=== PATIENT | female | born 1955 | race Caucasian/White ===

== ENCOUNTER 2018-01-04 05:47 | Day surgery (SDC) | payer MEDICAID, SELFPAY ==
--- NOTE | 2018-01-04 | GASB_PTH ---
PATIENT: MARIA LUISA REDMOND LOC: EN U#:[id number] AGE/SX: 62/F ROOM: RE01/04/[address]: Dr. Paul Garcia MD : 1955 BED: DIS: 01/04/2018 SPEC #: [id number] RECD: 01/04/18 11:07 STATUS: TAMARA ANIRUDH #: [id number] PRISCILLA: 01/04/18 00:[address]: Paul Garcia DEPT: SURGICAL PATHOLOGY RECD BY: Keenan Roland ENTERED: 01/04/18 11:07 SP TYPE: Gastric Bx OTHR DR: Dr. Nasir Duke MD Tissues: Gastric mucous membrane Procedures: Surgery Specimen Level IV HEADER OPERATION: [place] [place] DIAGNOSIS: Dysphagia, GERD, paraesophageal hernia TISSUE SUBMITTED: Antral biopsy for H. pylori and pathology MICROSCOPIC DIAGNOSIS Antral biopsy: Chronic active gastritis. SJ:ej 01/06/18 COMMENT The results of immunohistochemistry for Helicobacter pylori will be reported separately ([id number]). MICROSCOPIC DESCRIPTION Slides are reviewed. GROSS DESCRIPTION Received in fixative is one container labeled with the patient's name and designated antral biopsy. The specimen consists of one irregular fragment of light pollock soft tissue that measures 0.7 x 0.2 x 0.1 cm. The specimen is totally submitted in one cassette. / SJ:ej 01/04/18 TC:2 CPT: 28582
[2018-01-04 06:13] VITALS: BP 145/82; PULSE 64; RESP 16; TEMP 37.3; O2SAT 96; BMI 32.4
--- NOTE | 2018-01-04 07:15 | IMM_PTH ---
PATIENT: MARIA LUISA REDMOND LOC: EN U#:[id number] AGE/SX: 62/F ROOM: RE01/04/[address]: Dr. Paul Garcia MD : 1955 BED: DIS: 01/04/2018 SPEC #: [id number] RECD: 01/04/18 14:24 STATUS: TAMARA REAnjelica #: [id number] PRISCILLA: 01/04/18 07:[address]: Paul Garcia DEPT: IMMUNOHISTOCHEMISTRY RECD BY: Bessy Ponce ENTERED: 01/04/18 14:25 SP TYPE: IMMUNO OTHR DR: Dr. Nasir Duke MD Tissues: Stomach, NOS Procedures: H Pylori (initial) PHYSICIAN & INSTITUTION [place] [address] SPECIMEN INFORMATION: Tissue Source: Antral biopsy Clinical Info: Dysphagia, GERD, paraesophageal hernia Specimen Number: [id number] CPT code: 97065 METHODOLOGY: Deparaffinized sections of prefer/formalin-fixed tissue or PAP/DQ stained slides are incubated with monoclonal/polyclonal antibodies/oligonucleotide probes. Localization is made via biotin free immunoperoxidase method. Appropriate controls are performed and reacted as expected. Results on target cell population are indicated in the following table: RESULTS: ANTIBODY / CLONE RESULT H Pylori (polyclonal) negative These tests were developed and their performance characteristics determined by [facility]. They may not have been cleared or approved by the U.S. Food and Drug Administration. The FDA has determined that such clearance or approval is not necessary. INTERPRETATION: Antral biopsy: Negative for Helicobacter pylori organisms. SJ:ej 01/06/18
[2018-01-04 07:24] VITALS: BP 103/50; BP 145/82; PULSE 62; RESP 16; TEMP 36.3; O2SAT 93
[2018-01-04 07:30] VITALS: BP 110/46; BP 145/82; PULSE 67; RESP 16; O2SAT 98
--- NOTE | 2018-01-04 07:31 | OP.ENDO_ITS ---
Patient Name: Rowena Kumar Procedure Date: 01/04/2018 7:09 AM Date of : 1955 Age: 62 Procedure: Upper GI endoscopy Indications: Dysphagia, Gastro-esophageal reflux disease, Hiatal hernia Providers: Paul Garcia MD Referring MD: Paul Garcia MD Medicines: See the Anesthesia note for documentation of the administered medications Patient Profile: This is a 62 year old female. Refer to note in patient chart for documentation of history and physical. Complications: No immediate complications. Procedure: Pre-Anesthesia Assessment: - Prior to the procedure, a History and Physical was performed, and patient medications and allergies were reviewed. The patient's tolerance of previous anesthesia was also reviewed. The risks and benefits of the procedure and the sedation options and risks were discussed with the patient. All questions were answered, and informed consent was obtained. Prior Anticoagulants: The patient has taken no previous anticoagulant or antiplatelet agents. ASA Grade Assessment: III - A patient with severe systemic disease. After reviewing the risks and benefits, the patient was deemed in satisfactory condition to undergo the procedure. After obtaining informed consent, the endoscope was passed under direct vision. Throughout the procedure, the patient's blood pressure, pulse, and oxygen saturations were monitored continuously. The gastroscope was introduced through the mouth, and advanced to the second part of duodenum. The upper GI endoscopy was accomplished without difficulty. The patient tolerated the procedure well. Scope In: 7:18:06 AM Scope Out: 7:21:45 AM Total Procedure Duration Time 0 hours 3 minutes 39 seconds Findings: The Z-line was regular and was found 35 cm from the incisors. A large paraesophageal hernia was found. The proximal extent of the gastric folds (end of tubular esophagus) was 35 cm from the incisors. The hiatal narrowing was 40 cm from the incisors. The Z-line was 35 cm from the incisors. Scattered mild inflammation characterized by erythema and linear erosions was found in the entire examined stomach. Biopsies were taken with a cold forceps for Helicobacter pylori testing. The examined duodenum was normal. Impression: - Z-line regular, 35 cm from the incisors. - Large paraesophageal hernia. - Gastritis. Biopsied. - Normal examined duodenum. Recommendation: - Await pathology results. - Return to my office in 1 week. - Perform routine esophageal manometry in 1 week. - Perform ambulatory pH monitoring in 1 week. - Continue present medications. Procedure Code(s): --- Professional --- 66412, Esophagogastroduodenoscopy, flexible, transoral; with biopsy, single or multiple Diagnosis Code(s): --- Professional --- K44.9, Diaphragmatic hernia without obstruction or gangrene K29.70, Gastritis, unspecified, without bleeding R13.10, Dysphagia, unspecified K21.9, Gastro-esophageal reflux disease without esophagitis CPT copyright 2017 [employer]. All rights reserved. The codes documented in this report are preliminary and upon dj instructor review may be revised to meet current compliance requirements. MD Paul Conn MD 01/04/2018 7:31:15 AM This report has been signed electronically. Number of Addenda: 0 Note Initiated On: 01/04/2018 7:09 AM
[2018-01-04 07:35] VITALS: BP 118/59; BP 145/82; PULSE 63; RESP 16; O2SAT 98
[2018-01-04 07:40] VITALS: BP 119/74; BP 145/82; PULSE 61; RESP 16; TEMP 37; O2SAT 100
[2018-01-04 07:59] VITALS: BP 145/82
== END 2018-01-04 08:17 | disposition home or self-care (01) ==
LOC: EN 05:47 → AC 05:48
PROVIDERS: Family Provider Family Medicine; PCP Family Medicine; Referring Provider Surgery; Visit Provider Surgery
PROC: 0DJ08ZZ Inspection of Upper Intestinal Tract, Via Natural or Artificial Opening Endoscopic (ICD-10-PCS; CPT 43235; principal; 2018-01-04 07:10)
DX: K29.50 Unspecified chronic gastritis without bleeding (principal); K44.9 Diaphragmatic hernia without obstruction or gangrene; K21.9 Gastro-esophageal reflux disease without esophagitis; F32.9 Major depressive disorder, single episode, unspecified; I10 Essential (primary) hypertension; I34.1 Nonrheumatic mitral (valve) prolapse; Z78.0 Asymptomatic menopausal state; Z79.899 Other long term (current) drug therapy
CPT/HCPCS: 43239; 88305; 88342; J7120

== ENCOUNTER 2018-01-12 07:57 | Day surgery (SDC) | payer MEDICAID, SELFPAY ==
[2018-01-04 13:48] VITALS: BMI 32.4
[2018-01-12 08:07] VITALS: BP 146/84; PULSE 67; RESP 16; TEMP 35.9; O2SAT 96
--- OUTSIDE RECORDS SUMMARY | 2018-03-09 07:45 | XMS RPT_ITS ---
:1955 Author Organization [place] Support Name Relationship Address Phone CORINA GARCIA Unavailable Unavailable + [place] [address] SOURS, LASHAUN Unavailable [address] + [place] [address] UE Unavailable Unavailable Unavailable CORINA GARCIA Unavailable . + [place] [address] SOURS, LASHAUN Unavailable [address] + [place] [address] UE Unavailable Unavailable Unavailable CORINA GARCIA Unavailable Unavailable + [place] [address] SOURS, LASHAUN Unavailable [address] + [place] [address] UE Unavailable Unavailable Unavailable CORINA GARCIA Unavailable Unavailable + [place] [address] SOURS, LASHAUN Unavailable [address] + [place] [address] UE Unavailable Unavailable Unavailable CORINA GARCIA Unavailable Unavailable + [place] [address] R Unavailable Unavailable Unavailable SOURS, LASHAUN Unavailable [address] + [place] [address] CORINA GARCIA Unavailable Unavailable + [place] [address] SOURS, LASHAUN Unavailable [address] + [place] [address] UE Unavailable Unavailable Unavailable CORINA GARCIA Unavailable . + [place] [address] R Unavailable Unavailable Unavailable SOURS, LASHAUN Unavailable [address] + [place] [address] CORINA GARCIA Unavailable Unavailable + R Unavailable Unavailable Unavailable SOURS, LASHAUN Unavailable [address] + [place] [address] R Unavailable Unavailable Unavailable SOURS, LASHAUN Unavailable [address] + [place] [address] SOURS, LASHAUN Unavailable Unavailable + SOURS, LASHAUN Unavailable Unavailable + SOURS, LASHAUN Unavailable Unavailable + Care Team Providers Name Role Phone Nasir Camejo Admitting Unavailable CamejoNigeler Attending Unavailable Camejo, Nasir Primary Care Unavailable Ivanauskas, Saulius Admitting Unavailable Ivanauskas, Saulius Attending Unavailable Camejo, Nasir Primary Care Unavailable Josh Jerry Admitting Unavailable JoshJerry Attending Unavailable Camejo, Nasir Primary Care Unavailable Jeffrey Suárez R Attending Unavailable Camejo, Nasir Primary Care Unavailable Josh, Jerry Admitting Unavailable JoshJerry Attending Unavailable Camejo, Nasir Primary Care Unavailable Jeffrey Suárez R Admitting Unavailable Jeffrey Suárez R Attending Unavailable Camejo, Nasir Primary Care Unavailable Jeffrey Suárez R Admitting Unavailable KaminiJeffrey R Attending Unavailable Camejo, Nasir Primary Care Unavailable Camejo, Nasir Attending Unavailable Camejo, Nasir Primary Care Unavailable Camejo, Nasir Admitting Unavailable Camejo, Nasir Attending Unavailable Camejo, Nasir Primary Care Unavailable Camejo, Nasir Attending Unavailable Camejo, Nasir Primary Care Unavailable CamejoNigeler Attending Unavailable Camejo, Nasir Primary Care Unavailable Paul Garcia Attending Unavailable Foreign Arita Referring Unavailable Paul Garcia Attending Unavailable CAMEJO, NASIR O Referring Unavailable [place] Attending Unavailable Jose, Paul Referring Unavailable CAMEJO, NASIR O Primary Care Unavailable Paul Garcia Attending Unavailable CAMEJO, NASIR O Primary Care Unavailable Paul Garcia Referring Unavailable Paul Garcia Attending Unavailable CAMEJO, NASIR O Referring Unavailable Celestino Madison Attending Unavailable Celestino Madison Referring Unavailable CAMEJO, NASIR O Primary Care Unavailable Paul Garcia Attending Unavailable Michael Garciael Referring Unavailable CAMEJO, NASIR O Primary Care Unavailable Paul Garcia Attending Unavailable Paul Garcia Referring Unavailable Celestino Madison Attending Unavailable Paul Garcia Referring Unavailable PROBLEMS PROBLEMS DATE TYPE CONDITION / CODE ATTENDING STATUS SOURCE 01/23/2018 Unknown K21.9 - Gricelda, Active [facility] Gastro-esophageal [facility] reflux disease [facility] without Repository esophagitis / K21.9(ICD-10) PROCEDURES PROCEDURES No Procedure Records FoundRESULTS RESULTS UPPER GI W/BA Observed: 01/31/2018 Status: F Source: [facility] SWALLOW 8:[address] [facility] REPOSITORY [facility] Imaging Services [address] [place] [address] Upper GI w/BA Swallow MR#: [id number] Acct: [id number] Name: ROWENA REDMOND Rep #: [id number] : 1955 F 62 From: Chandana Flores MD PCP: Nasir Camejo MD Status: REG CLI Study: Upper GI w/BA Swallow Date of Exam: 01/31/18 Exam# [id number] Ordering Dr: Paul Garcia MD STUDY: AIR-CONTRAST UPPER GI SERIES. REASON FOR EXAM: Female, 62 years old. History of hiatal hernia. Epigastric pain. Hoarseness. FLUOROSCOPY TIME (if supplied): (0:30) minutes/seconds TECHNIQUE: The patient ingested barium. Multiple images of the esophagus stomach and duodenum were obtained. COMPARISON: Comparison is made with prior esophagram dated October 28, 2016. FINDINGS: There is a moderate-sized hiatal hernia without gastroesophageal reflux. No evidence of obstruction or mass lesion. The remainder of the stomach and duodenum is unremarkable. No evidence of ulceration. No mass lesion is seen. IMPRESSION: Moderate sized hiatal hernia without gastroesophageal reflux. Electronically Signed: Chandana Flores MD at 13:34 EST Tel [phone], Service support , STUDY: X-RAY - ESOPHAGUS (BARIUM SWALLOW) WITH FLUOROSCOPY REASON FOR EXAM: Female, 62 years old. History of hiatal hernia. TECHNIQUE: 25 view(s) of the esophagus were obtained following swallowing of barium. FLUOROSCOPY TIME (if supplied): (0:20) minutes/seconds COMPARISON: Comparison is made with prior examination is October 28, 2016. FINDINGS: There is no demonstrated esophageal foreign body. There is no demonstrated stricture or mucosal abnormality. Moderate sized hiatal hernia without gastroesophageal reflux. Normal visualized aortic arch and descending thoracic aorta. Normal visualized pulmonary parenchyma. There are diffuse degenerative changes of the visualized thoracic spine. RAD/Upper GI w/BA Swallow IMPRESSION: Moderate sized hiatal hernia. Electronically Signed: Chandana Flores MD at 13:35 EST Tel [phone], Service support , CC: Paul Garcia MD; Nasir Camejo MD Health Record Technician: Signed OPERATIVE REPORT - Observed: 01/18/2018 Status: F Source: [facility] ENDOSCOPY 7:[address] [facility] REPOSITORY [facility] Medical Records Department [address] [place] [address] Operative Report - Endoscopy MR#: [id number] Acct: [id number] Name: ROWENA REDMOND Rep #: [id number] : 1955 62 From: Paul Garcia MD PCP: Nasir Camejo MD Status: REG [facility] Patient Name: Rowena eRdmond Procedure Date: 01/18/2018 6:55 AM Date of : 1955 Age: 62 Procedure: Upper GI endoscopy Indications: Gastro-esophageal reflux disease, GERD, Refractory to medical management, paraesophageal hernia Providers: Paul Garcia MD Referring MD: Paul Garcia MD Medicines: See the Anesthesia note for documentation of the administered medications Patient Profile: This is a 62 year old female. Refer to note in patient chart for documentation of history and physical. Complications: No immediate complications. Procedure: Pre-Anesthesia Assessment: - Prior to the procedure, a History and Physical was performed, and patient medications and allergies were reviewed. The patient's tolerance of previous anesthesia was also reviewed. The risks and benefits of the procedure and the sedation options and risks were discussed with the patient. All questions were answered, and informed consent was obtained. Prior Anticoagulants: The patient has taken no previous anticoagulant or antiplatelet agents. ASA Grade Assessment: III - A patient with severe systemic disease. After reviewing the risks and benefits, the patient was deemed in satisfactory condition to undergo the procedure. After obtaining informed consent, the endoscope was passed under direct vision. Throughout the procedure, the patient's blood pressure, pulse, and oxygen saturations were monitored continuously. The gastroscope was introduced through the mouth, and advanced to the duodenal bulb. The upper GI endoscopy was accomplished without difficulty. The patient tolerated the procedure well. Scope In: 7:04:56 AM Scope Out: 7:09:23 AM Total Procedure Duration Time 0 hours 4 minutes 27 seconds Findings: The Z-line was regular and was found 35 cm from the incisors. The HORN capsule with delivery system was introduced through the mouth and advanced into the esophagus, such that the HORN pH capsule was positioned 29 cm from the incisors, which was 5 cm proximal to the GE junction. Suction was applied to the well of the HORN pH capsule to suck in the adjacent mucosa of the esophagus using the external vacuum pump. The HORN pH capsule was then deployed by depressing the plunger on top of the handle to advance the locking pin into the mucosa, thereby attaching the capsule to the esophagus. The plunger was then rotated a quarter turn clockwise to release the capsule from the delivery system. The delivery system was then withdrawn. Endoscopy was utilized for placement of the probe only. The scope was reinserted to evaluate placement of the HORN capsule. Visualization showed the HORN capsule to be in an appropriate position. The exam was otherwise without abnormality. Impression: - Z-line regular, 35 cm from the incisors. - The examination was otherwise normal. - The HORN pH capsule was positioned 29 cm from the incisors, which was 5 cm proximal to the GE junction. - No specimens collected. Recommendation: - Discharge patient to home. - Resume previous diet. - Hold present medications. - Repeat upper endoscopy at appointment to be scheduled to evaluate the response to therapy. - Return to my office in 1 week. Procedure Code(s): --- Professional --- 40889, 59, Esophagogastroduodenoscopy, flexible, transoral; diagnostic, including collection of specimen(s) by brushing or washing, when performed (separate procedure) 42690, Esophagus, gastroesophageal reflux test; with mucosal attached telemetry pH electrode placement, recording, analysis and interpretation CPT copyright 2017 [employer]. All rights reserved. The codes documented in this report are preliminary and upon commercial loan specialist review may be revised to meet current compliance requirements. MD Paul Conn MD 01/18/2018 7:22:46 AM This report has been signed electronically. Number of Addenda: 0 Note Initiated On: 01/18/2018 6:55 AM 01/18/18 0722 Date Paul Garcia MD Cosigner Signature: Date (if indicated) CC: Paul Garcia MD; Nasir Camejo MD Date Dictated: 01/18/18 0655 Date Transcribed: Health Record Technician: KAROL Signed SURGERY VISIT REPORT Observed: 01/16/2018 Status: F Source: [place] 8:[address] [facility] REPOSITORY [facility] [address] [place] [address] [address] [place] [address] OFFICE VISIT Date of Service: 01/11/18 MR#: [id number] Acct: [id number] Name: JIMROWENA Sanchez Nico Rep #: [id number] : 1955 Provider: Paul Garcia MD Age/Sex: 62/F Location: [facility] Status: Signed Intake Vital Signs01/04/18 Body Mass Index (BMI) 32.4 Intake Visit Reasons: Upper Scope 01/04 Chief Complaint: EGD results Valve Fitter Required: No Is patient in pain?: No Allergies No Known Allergies Allergy (Verified 01/13/18 12:55) Medications modafinil 200 mg tablet 200 mg PO BID tab 12/20/17 [History Confirmed 01/13/18] triamterene 37.5 mg-hydrochlorothiazide 25 mg tablet 1 tab PO DAILY 12/20/17 [History Confirmed 01/13/18] venlafaxine 75 mg tablet 75 mg PO BID 12/20/17 [History Confirmed 01/13/18] Is last menstrual period known: No Post menopausal: Yes Patient : No Subjective Details: Patient is status post an EGD completed on 01/04/2018. She was noted to have a fairly large paraesophageal hernia with the Z line being located at the 35 cm adis and the hiatal narrowing being at 40 cm. Biopsy for H. pylori in the stomach was negative. She is tolerating a diet but she is experiencing epigastric and chest pain. This has been worked up from a cardiac standpoint and has been deemed to be negative Objective Details: Soft and non-tender Assessment AND Plan Problems 1. Paraesophageal hernia K44.9 2. GERD (gastroesophageal reflux disease) K21.9 3. Dysphagia R13.10 Plan We are going to obtain esophageal manometry on the patient. This is completed I am going to perform an EGD with 48-hour pH probe. When I have both of the stated together then I will sit down with her and discuss what her surgical options are. Coding Level of Care Code Off vis,est,level 2 Diagnoses Paraesophageal hernia K44.9 GERD (gastroesophageal reflux disease) K21.9 Dysphagia R13.10 01/16/18 0856 <Electronically signed by Paul Garcia MD> Date Paul Garcia MD Cosigner Signature: Date (if applicable) CC: Nasir Camejo MD OPERATIVE REPORT - Observed: 01/04/2018 Status: F Source: [facility] ENDOSCOPY 7:[address] [facility] REPOSITORY [facility] Medical Records Department [address] [place] [address] Operative Report - Endoscopy MR#: [id number] Acct: [id number] Name: ROWENA REDMOND Rep #: [id number] : 1955 62 From: Paul Garcia MD PCP: Nasir Camejo MD Status: REG [facility] Patient Name: Rowena Redmond Procedure Date: 01/04/2018 7:09 AM Date of : 1955 Age: 62 Procedure: Upper GI endoscopy Indications: Dysphagia, Gastro-esophageal reflux disease, Hiatal hernia Providers: Paul Garcia MD Referring MD: Paul Garcia MD Medicines: See the Anesthesia note for documentation of the administered medications Patient Profile: This is a 62 year old female. Refer to note in patient chart for documentation of history and physical. Complications: No immediate complications. Procedure: Pre-Anesthesia Assessment: - Prior to the procedure, a History and Physical was performed, and patient medications and allergies were reviewed. The patient's tolerance of previous anesthesia was also reviewed. The risks and benefits of the procedure and the sedation options and risks were discussed with the patient. All questions were answered, and informed consent was obtained. Prior Anticoagulants: The patient has taken no previous anticoagulant or antiplatelet agents. ASA Grade Assessment: III - A patient with severe systemic disease. After reviewing the risks and benefits, the patient was deemed in satisfactory condition to undergo the procedure. After obtaining informed consent, the endoscope was passed under direct vision. Throughout the procedure, the patient's blood pressure, pulse, and oxygen saturations were monitored continuously. The gastroscope was introduced through the mouth, and advanced to the second part of duodenum. The upper GI endoscopy was accomplished without difficulty. The patient tolerated the procedure well. Scope In: 7:18:06 AM Scope Out: 7:21:45 AM Total Procedure Duration Time 0 hours 3 minutes 39 seconds Findings: The Z-line was regular and was found 35 cm from the incisors. A large paraesophageal hernia was found. The proximal extent of the gastric folds (end of tubular esophagus) was 35 cm from the incisors. The hiatal narrowing was 40 cm from the incisors. The Z-line was 35 cm from the incisors. Scattered mild inflammation characterized by erythema and linear erosions was found in the entire examined stomach. Biopsies were taken with a cold forceps for Helicobacter pylori testing. The examined duodenum was normal. Impression: - Z-line regular, 35 cm from the incisors. - Large paraesophageal hernia. - Gastritis. Biopsied. - Normal examined duodenum. Recommendation: - Await pathology results. - Return to my office in 1 week. - Perform routine esophageal manometry in 1 week. - Perform ambulatory pH monitoring in 1 week. - Continue present medications. Procedure Code(s): --- Professional --- 29479, Esophagogastroduodenoscopy, flexible, transoral; with biopsy, single or multiple Diagnosis Code(s): --- Professional --- K44.9, Diaphragmatic hernia without obstruction or gangrene K29.70, Gastritis, unspecified, without bleeding R13.10, Dysphagia, unspecified K21.9, Gastro-esophageal reflux disease without esophagitis CPT copyright 2017 [employer]. All rights reserved. The codes documented in this report are preliminary and upon commercial loan specialist review may be revised to meet current compliance requirements. MD Paul Conn MD 01/04/2018 7:31:15 AM This report has been signed electronically. Number of Addenda: 0 Note Initiated On: 01/04/2018 7:09 AM 01/04/18730 Date Paul Garcia MD Cosigner Signature: Date (if indicated) CC: Paul Garcia MD; Nasir Camejo MD Date Dictated: 01/04/18708 Date Transcribed: Health Record Technician: KAROL Signed IMMUNOHISTOCHEMISTRY Observed: 01/04/2018 Status: F Source: [facility]ERRY 7:[address] [facility] REPOSITORY Patient: ROWENA REDMOND : 1955 (62/F) Acct Num: [id number] Phys: Jose HERMOSILLO,Paul Unit Num: [id number] Loc: EN Specimen: [id number] Received: 01/04/181423 Spec Type: IMMUNO TISSUES 1 TISSUES: Stomach, NOS SPECIMEN INFORMATION: Tissue Source: Antral biopsy Clinical Info: Dysphagia, GERD, paraesophageal hernia Specimen Number: [id number] CPT code: 50061 METHODOLOGY: Deparaffinized sections of prefer/formalin-fixed tissue or PAP/DQ stained slides are incubated with monoclonal/polyclonal antibodies/oligonucleotide probes. Localization is made via biotin free immunoperoxidase method. Appropriate controls are performed and reacted as expected. Results on target cell population are indicated in the following table: RESULTS: ANTIBODY / CLONE RESULT H Pylori (polyclonal) negative These tests were developed and their performance characteristics determined by [facility]. They may not have been cleared or approved by the U.S. Food and Drug Administration. The FDA has determined that such clearance or approval is not necessary. INTERPRETATION: Antral biopsy: Negative for Helicobacter pylori organisms. SJ:ej 01/06/18 PHYSICIAN AND INSTITUTION [place] [address] Signed Graeme Lombardo 01/06/18 <signature on file> Performed By: #### PIMM #### [facility] [address] [place] [address]. [place], [place], [address] GASTRIC BIOPSY Observed: 01/04/2018 Status: F Source: [place] 12:[address] [facility] REPOSITORY Patient: ROWENA REDMOND : 1955 (62/F) Acct Num: [id number] Phys: Paul Garcia MD Unit Num: [id number] Loc: EN Specimen: [id number] Received: 01/04/181106 Spec Type: Gastric Bx TISSUES 1 TISSUES: Gastric mucous membrane COMMENT The results of immunohistochemistry for Helicobacter pylori will be reported separately ([id number]). GROSS DESCRIPTION Received in fixative is one container labeled with the patient's name and designated antral biopsy. The specimen consists of one irregular fragment of light pollock soft tissue that measures 0.7 x 0.2 x 0.1 cm. The specimen is totally submitted in one cassette. / SJ:ej 01/04/18 TC:2 CPT: 12820 HEADER OPERATION: [place] PRE[place]OP DIAGNOSIS: Dysphagia, GERD, paraesophageal hernia TISSUE SUBMITTED: Antral biopsy for H. pylori and pathology MICROSCOPIC DESCRIPTION Slides are reviewed. MICROSCOPIC DIAGNOSIS Antral biopsy: Chronic active gastritis. SJ:ej 01/06/18 Signed Graeme Urrutiain 01/06/18 <signature on file> Performed By: #### PGASB #### [facility] [address] [place], [address] SURGERY VISIT REPORT Observed: 12/20/2017 Status: F Source: [facility] 10:[address] [facility] REPOSITORY [facility] [address] [place] [address] OFFICE VISIT Date of Service: 12/20/17 MR#: [id number] Acct: [id number] Name: ROWENA REDMOND Rep #: [id number] : 1955 Provider: Paul Garcia MD Age/Sex: 62/F Location: [facility] Status: Signed Intake Vital Signs12/20/17 Height 5 ft 10 in 12/20/17 Weight: 226 lb Intake Visit Reasons: Hiatal Hernia Req DP Valve Fitter Required: No Is patient in pain?: No Allergies No Known Allergies Allergy (Unverified 12/20/17 09:33) Medications modafinil 200 mg tablet 200 mg PO BID tab 12/20/17 [History Confirmed 12/20/17] omeprazole 40 mg capsule,delayed release 40 mg PO DAILY 12/20/17 [History Confirmed 12/20/17] triamterene 37.5 mg-hydrochlorothiazide 25 mg tablet 1 tab PO DAILY 12/20/17 [History Confirmed 12/20/17] venlafaxine 75 mg tablet 75 mg PO BID 12/20/17 [History Confirmed 12/20/17] PFSH Medical History Depression (Acute) Hiatal hernia (Acute) Sleep apnea (Acute) Hypertension (Chronic) Surgical History No history of previous surgery (Acute) Family History Mother Hypertension CVA (cerebral vascular accident) Social History Smoking Status: Never smoker alcohol intake: never substance use type: does not use HPI HPI HPI: ROWENA REDMOND, is a 62 F who presents to the office today for evaluation for dysphasia and gastroesophageal reflux disease. Patient was seen by Dr. Arita and worked up with a barium swallow. Patient has been put on a proton pump inhibitor without improvement in her constant clearing of her throat dysphasia and reflux. Patient states that she has a dry irritated cough feels like something was in the back of her throat she has never had problems with sinusitis or nasal discharge. Patient states that she does have hoarseness of her voice. She really does not have much in the sense of reflux coming up. Her barium swallow showed a significant hiatal hernia without signs of reflux. ROS General General: No weight change, appetite, fatigue, colon cancer, breast cancer or weakness HEENT HEENT: No difficulty swallowing, eye injury, eye surgery, swollen glands or hoarseness Endo Endocrine: No thyroid disease, diabetes mellitus, thyroid cancer, Hair loss, heat intolerance or cold intolerance Skin Skin: No rash or changing moles Breast Breast: No left breast lump, right breast lump, nipple discharge, breast pain, abnormal mammogram, abnormal US or breast enlargement Musc Musculoskeletal: No back problems, arthritis, rheumatoid arthritis, gout or joint pain Cardio Cardiovascular: Yes high blood pressure; no murmur, pacemaker, heart disease, atrial fibrillation, heart attack, heart stent, palpitations, shortness of breat with exertion or chest pain Psych Psychiatric: Yes depression; no anxiety or hearing voices Resp Respiratory: No shortness of breath, Yes sleep apnea, No cough, No COPD, No asthma, No emphysema, No wheezing Gastro Gastrointestinal: No abdominal pain, No nausea or vomiting, No diarrhea, No constipation, No blood in stool, No acid reflux, No hemorrhoids, No ulcers, No gallbladder problem, No black,tarry stools Marco Hematologic: No blood thinners, No blood disorders, No bleeding, No anemia, No blood clots Neuro Neurologic: No system reviewed and no additional complaints, except as docu, No as per HPI, No abnormal walking, No abnormal hearing, No abnormal movements, No abnormal speech, No behavioral changes, No burning sensations, No confusion, No seizure-like activity, No unsteadiness, No dizziness, No localized weakness, No frequent falls, No headache(s), No lack of coordination, No loss of vision, No memory loss, No numbness, No other visual disturbances, No radiating pain, No restless legs, No sensory deficit, No fainting, No tingling, No tremor(s), No weakness, No other Exam Const General: well developed, no acute distress, well hydrated Orientation: oriented to person, oriented to place, oriented to time [facility] Head: normocephalic, atraumatic Ears: external ears normal Mouth: moist mucous membranes Eyes Sclera: sclerae normal Pupils: normal by confrontation Neck Neck: no lymphadenopathy noted Neck mass: No Thyroid: symmetrical, thyroid normal Chest Chest palpation AND inspection: normal inspection of the chest Breast Palpation: No nipple discharge Resp Effort AND Inspection: normal respiratory effort Auscultation: clear to auscultation bilaterally Percussion: percussion normal Cardio Rate: regular rate Rhythm: regular rhythm Heart Sounds: no murmurs GI Palpation: soft, no masses, no hepatosplenomegaly, nontender Rectal Exam: other Other: Rectal exam deferred. Extrem General: no clubbing, cyanosis or edema, normal to inspection Assessment AND Plan Problems 1. Dysphagia, unspecified type R13.10 2. Gastroesophageal reflux disease without esophagitis K21.9 3. Paraesophageal hernia K44.9 Plan I have discussed the above with the patient. I have offered the patient esophagogastroduodenoscopy for evaluation. I have explained the risks/benefits of the procedure and described the procedure. I have discussed the risks with the patient, including but not limited to: infection, bleeding, perforation of the GI tract requiring emergency surgery, inability to complete the procedure, injury to any internal organs, complications of anesthesia, etc. - the patient understands and agrees to proceed. I have answered all the patient's questions to the patient's satisfaction and the patient has no further questions. The patient has been given instructions for the colon cleansing preparation. I have reviewed the barium swallow and believe that she has a significant paraesophageal hernia. It appears that almost 50% of her stomach is in her chest. She may actually have a foreshortened esophagus as well. I plan is to get accurate measurements of the length of the esophagus and length of the distance between the GE junction and the diaphragmatic hiatus. The patient is also going to need to have esophageal manometry done at some time after our scope. I am not sure that I am going to need to obtain a 48-hour pH probe on her at this time. Looking at the barium swallow it seems like she is going to have to have some form of reflux surgery which will be dependent more upon the manometry and any findings on the 48-hour pH. If the distance between the GE junction and the diaphragmatic hiatus is too great she may actually need to be seen at a larger institution for far more complex surgery to lengthen the esophagus. Coding Level of Care Code Off vis,new,level 3 Diagnoses Dysphagia, unspecified type R13.10 Dysphagia type: unspecified Gastroesophageal reflux disease without esophagitis K21.9 Esophagitis presence: without esophagitis Paraesophageal hernia K44.9 12/20/17 1029 <Electronically signed by Paul Garcia MD> Date Paul Garcia MD [facility] Signature: Date (if applicable) CC: Jerald Arita MD; Nasir Camejo MD IFOB OCCULT BLOOD Collected: 08/16/2017 Status: F Source: TENRIISM 1:13 PM [facility] REPOSITORY TYPE CODE TESTS RESULT OUT OF RANGE REFERENCE UNITS LAB [id number]( LOINC) Normal Occult Negative Blood iFOB LAB CD:[id number](LOINC) Normal Occult Positive Bld iFOB Int Ctl Performed By: #### [id number] #### MARY Jackie Mark SubSection , MA MAMM SCREEN W/CAD Observed: 07/22/2017 Status: F Source: TENRIISM IF PERFORMED BILAT 10:45 AM [facility] REPOSITORY Exam Date/Time: 07/22/2017 11:00 EDT Reason for Exam: SCREENING;Screening Report STUDY: Digital mammography screening; 07/22/2017 11:00 am ACCESSION NUMBER(S): [id number] ORDERING CLINICIAN: Jeffrey Suárez INDICATION: Screening. COMPARISON: Comparison is made to prior digital mammograms dated 06/09/2016 and 10/14/2014 FINDINGS: CC and MLO 2D digital mammographic images of the bilateral breasts were obtained. There are areas of scattered fibroglandular tissue. No discrete mass or focal asymmetry is identified. No suspicious microcalcifications or foci of architectural distortion are seen. There has been no significant change. This study was interpreted with CAD. IMPRESSION: No mammographic evidence of malignancy. BI-RADS CATEGORY: Category: 1 - Negative. Recommendation: Normal Interval Follow-up, Over Age 40. Recall Interval: 12 Months. Breast Density: Fatty. FINAL REPORT Dictated: 07/22/2017 2:37 pm Pratik Beaver MD Signed (Electronic Signature): 07/22/2017 2:37 pm Signed by: Pratik Beaver MD Technologist: MGW Assessment: BI-RADS Category 1-Negative Recommendation: Normal interval follow-up IGP W/HPV RFX Collected: 07/20/2017 Status: F Source: TENRIISM [id number] 2:02 PM [facility] REPOSITORY Order Comment: Thin Prep. Menopause, cervical stenosis TYPE CODE TESTS RESULT OUT OF RANGE REFERENCE UNITS LAB [id number](LO INC) Normal See Ref Lab Diagnosis: Report Performed By: #### [id number] #### [place] [address] CT HEAD OR BRAIN W/O Observed: 04/25/2017 Status: F Source: TEN[place]ISM CONTRAST 11:59 AM [facility] REPOSITORY Exam Date/Time: 04/25/2017 12:10 EDT Reason for Exam: Injury Report EXAM: CT Head or Brain w/o Contrast CLINICAL STATEMENT: 62-year-old female fell down stairs struck left side of the head. COMPARISON: None. TECHNIQUE: CT examination of the head without IV contrast. Dose reduction techniques were achieved by using automated exposure control and/or adjustment of mA and/or kV according to patient size and/or use of iterative reconstruction technique. FINDINGS: Normal ventricles and sulci, with slight atrophy, with no bleed, mass, midline shift or extra-axial fluid collection. The bone windows are normal. The coronal and sagittal multiplanar reconstructions show no additional abnormality. IMPRESSION: Mild atrophy. No acute intracranial event. FINAL REPORT Dictated: 04/25/2017 12:43 pm Ronaldo Beaver MD, V Signed (Electronic Signature): 04/25/2017 12:43 pm Signed by: Ronaldo Beaver MD, V Technologist: [facility] ALLERGIES ALLERGIES DATE TYPE / CODE NAME / CODE REACTION SEVERITY SOURCE 01/13/2018 Drug No Known Unknown [facility] Allergy/416 Allergies/W33917 Hospital 109071(SNOM 0388(RXNORM) Repository ED CT) Drug/798330 No Known [facility] 003(SNOMED [facility] CT) System Repository ENCOUNTERS ENCOUNTERS ADMIT/DISCHARGE ACCOUNT NUMBER ADMITTING ENCOUNTER LOCATION SOURCE CLASS 01/31/2018 [id number] Ambulatory [facility] ding:RAD Repository 01/27/2018/01/28/20 [id number] Ambulatory [address] [facility] racRoom: Room 1 01/25/2018/01/26/20 [id number] Ambulatory BMSBuilding: [place] [facility]MS[facility] Repository 01/18/2018/01/19/20 [id number] Ambulatory [address] ding:ENRoom: Repository [facility] 01/18/2018/01/19/20 [id number] Ambulatory BMSBuilding: [place] 18 BMS.CF[facility] Repository 01/12/2018/01/13/20 [id number] Ambulatory [address] ding:EN Repository 01/12/2018/01/13/20 [id number] Ambulatory BMSBuilding: [place] 18 BMS.[facility] Repository 01/11/2018/01/12/20 [id number] Ambulatory BMSBuilding: [place] 18 [facility]MS[facility] Repository 01/04/2018/01/05/20 [id number] Ambulatory [address] ding:ENRoom: Repository AC 12/20/2017/12/21/19 [id number] Ambulatory BMSBuilding: [place] 18 [facility]MS[facility] Repository 11/04/2017/11/05/19 [id number] Ambulatory [address] ding:[facility] Repository racRoom: Room 2 08/16/2017/08/17/[id number] ding:[facility] Repository 08/16/2017 [id number] Ambulatory [address] [place] [address] Repository 07/22/2017 [id number] Ambulatory [facility] ding:[facility] Repository rac 07/22/2017/07/23/[id number]ame[address] ding:[facility] Repository racRoom: Room 3 07/22/2017/07/23/[id number] ding:[facility] Repository 07/22/2017 [id number] Ambulatory [address] [place] [address] Repository 07/20/2017/07/21/[id number] ding:[facility] Repository 07/20/2017/07/21/[id number] Health System [facility] Repository om: Room 5 07/20/2017 [id number] Ambulatory [address] [facility] Repository 07/19/2017/07/20/[id number] ding:[facility] Repository racRoom: Room 2 05/05/2017/05/06/[id number] ding:[facility] Repository racRoom: Room 2 04/25/2017/04/26/19 [id number] Ivanataylor, Emergency [address] ding:[facility] EDRoom: WR Repository PAYERS PAYERS ENCOUNTER GUARANTOR PAYER SUBSCRIBER SOURCE 01/31/2018 ROWENA Walsh Primary ROWENA Stewart [id number] CR Insurance:CARESOURCEP SOURSDOB: [address] Number: [id number] [facility] [address]Tab: [id number] Repository Date:2018-01-25 O (HP) [address]ATTN: [place] [address]DF: 01/31/2018 Secondary NOT GIVENUNK Terry Insurance:SELF PAY [facility] Number: Effective Repository Date:2018-01-25 01/25/2018 ROWENA Walsh Primary ROWENA Stewart [id number] CR Insurance:CARESOURCEP SOURSDOB: [address] Number: [id number] General Hospital [address]Pri: [id number] Repository Date:2018-01-18P O () [address]ATTN: [place] [address]IA: 01/25/2018 Secondary NOT GIVENUNK [place] Insurance:SELF PAY [facility] Number: Effective Repository Date:2018-01-25 01/18/2018 ROWENA Walsh Primary ROWENA Stewart [id number] CR Insurance:CARESOURCEP SOURSDOB: [address] Number: [id number] [place] [address]Enz: [id number] Repository Date:2018-01-11P O () [address]ATTN: [place] [address]HM: 01/18/2018 Secondary NOT GIVENUNK [place] Insurance:SELF PAY [facility] Number: Effective Repository Date:2018-01-11 01/18/2018 ROWENA Walsh Primary ROWENA Stewart [id number] CR Insurance:CARESOURCEP SOURSDOB: [address] Number: [id number] [place] [address]Ixp: [id number] Repository Date:2018-01-11P O (HP) [address]ATTN: [place] [address]XJ: 01/18/2018 Secondary NOT GIVENUNK [place] Insurance:SELF PAY [facility] Number: Effective Repository Date:2018-01-18 01/12/2018 ROWENA Walsh Primary ROWENA Stewart [id number] CR Insurance:CARESOURCEP SOURSDOB: [address] Number: [id number] General Hospital [address]Dyn: [id number] Repository Date:2018-01-11P O () [address]ATTN: [place] [address]NR: 01/12/2018 Secondary NOT GIVENUNK [place] Insurance:SELF PAY [facility] Number: Effective Repository Date:2018-01-11 01/12/2018 ROWENA Walsh Primary ROWENA Stewart [id number] CR Insurance:CARESOURCEP SOURSDOB: [address] Number: [id number] General Hospital [address]Dlh: [id number] Repository Date:2018-01-11P O () [address]ATTN: [place] [address]YT: 01/12/2018 Secondary NOT GIVENUNK [place] Insurance:SELF PAY [facility] Number: Effective Repository Date:2018-01-12 01/11/2018 ROWENA Walsh Primary ROWENA Stewart [id number] CR Insurance:CARESOURCEP SOURSDOB: [address] Number: [id number] [place] [address]Gac: [id number] Repository Date:2018-01-04P O () [address]ATTN: [place] [address]EX: 01/11/2018 Secondary NOT GIVENUNK [place] Insurance:SELF PAY [facility] Number: Effective Repository Date:2018-01-04 01/04/2018 ROWENA Walsh Primary ROWENA Walsh [place] [id number] CR [facility] SOURSDOB: [address] Number: [id number] General Hospital [address]Web: [id number] Repository Date:2017-12-20P O (HP) [address]ATTN: [place] [address]SL: 01/04/2018 Secondary NOT GIVENUNK [place] Insurance:SELF PAY [facility] Number: Effective Repository Date:2017-12-20 12/20/2017 ROWENA [id number] Primary ROWENA SOURSDOB: Terry CR Insurance:CARESOURCEP [id number] [address] Number: [facility] [address]Tmm: [id number] Repository Date:2017-12-16P O () [address]ATTN: [place] [address]DJ: 12/20/2017 Secondary NOT GIVENUNK [place] Insurance:SELF PAY [facility] Number: Effective Repository Date:2017-12-16 08/16/2017 ROWENA SOURSDOB: Primary ROWENA SOURSDOB: [place] Insurance:[facility] [id number] [facility] Number: [facility]ository [address] [place] [address], [id number] [id number]: Date:Plan [place] [id number]: Name:HealthP O Box (IB) [place] () [id number]: 07/22/2017 ROWENA Walsh Primary ROWENA Enriquez SOURSDOB: Insurance:[facility] SOURSDOB: [facility] [id number] [address], Number: Effective [address] [place] [address] [id number]: Date:2017-07-22 [place] [id number]: [id number] (HP)Tel: (419) Name:CD:[id number] O (HP) (WP) [address] [place] [address] 000-0000 (WP) [address]IM: 07/22/2017 ROWENA Walsh Primary ROWENA Enriquez SOURSDOB: Insurance:[facility] SOURSDOB: [facility] [id number] [address], Number: Effective [address] [place] [address] [id number]: Date:2017-01-21 - [place] [id number]: [id number] (HP)Tel: (419) Name:CD:[id number] O (HP) (WP) [address] [place] [address] 000-0000 (WP) [phone]: 07/22/2017 ROWENA Walsh Primary ROWENA Enriquez SOURSDOB: [facility] SOURSDOB: [facility] MCAIDPolicy Number: [id number] [facility] Repository [address] [place] [address], Date:2017-07-20 - [address] [place] [address] [id number]: [id number] [place] [id number]: Name:CD:[id number] (HP)Tel: (419) [address] [place] [address] (HP) (WP) [phone]: (WP) [phone] 07/22/2017 ROWENA SOURSDOB: Primary ROWENA SOURSDOB: [place] Insurance:Cares[employer]P [id number] [facility] Number: [facility] Repository [address] [place] [address], [id number] [address] [place] [address] [id number]: Date:[facility] [id number]: Name:HealthP O Box (HP) [address] [place] [address] (HP) [phone]: 07/20/2017 ROWENA Walsh Primary ROWENA Enriquez SOURSDOB: Insurance:[employer]OURCE SOURSDOB: [facility] Number: [id number] [address], Date:2017-07-20 - [address] [place] [address] [id number]: [id number] [place] [id number]: Name:CD:[id number] (HP)Tel: (419) [address] [place] [address] (HP) (WP) [phone]: (WP) [phone] 07/20/2017 ROWENA Walsh Primary ROWENA Enriquez SOURSDOB: Insurance:[facility] SOURSDOB: [facility] [id number] [place], [place] [address]TH [address], Number: Effective [place], [place] [phone]: Date:2017-06-17 - [place] [id number]: [id number] (HP)Tel: (419) Name:CD:[id number] O (HP) (WP) [address] [place] [address] 000-0000 (WP) [phone]: 07/20/2017 ROWENA SOURSDOB: Primary ROWENA SOURSDOB: [place] Insurance:[facility] [id number] [facility] Number: [address], [id number] [address] [place] [address] [id number]: Date:[facility] [id number]: Name:HealthP O Box (HP) [address] [place] [address] (HP) [phone]: 07/19/2017 ROWENA Walsh Primary ROWENA Enriquez SOURSDOB: Insurance:1500 SOURSDOB: [facility] [id number] [address], Number: Effective [address] [place] [address] [id number]: Date:2017-07-19 - [place] [id number]: [id number] (HP)Tel: (419) Name:CD:[id number] O (HP) (WP) [address] [place] [address] 000-0000 (WP) [phone]: 05/05/2017 ROWENA Walsh Primary ROWENA Enriquez SOURSDOB: Insurance:1500 SOURSDOB: [facility] [id number] [address], Number: Effective [place], [place] [phone]: Date:2017-05-05 - [place] [id number]: 2100-12-31Plan (HP)Tel: (419) Name:CD:[id number] O (HP) (WP) [address] [place] [address] 000-0000 (WP) [phone]: 04/25/2017 ROWENA Walsh Primary ROWENA Walsh Restoration[facility] [place] OOB: [facility] JAYLYNOB: [facility] [id number] MCAIDPolicy Number: [id number] [facility] [address] Repository [address] [place] [address], Date:2017-04-25[place] [phone]: [id number] [place] [id number]: Name:CD:[id number] ()Tel: (554) EDM [address] [place] [address] () (WP) [phone]: () [phone]
== END 2018-01-12 08:40 | disposition home or self-care (01) ==
LOC: EN 07:58 → AC 07:59
PROVIDERS: Family Provider Family Medicine; PCP Family Medicine; Referring Provider Surgery; Visit Provider Surgery
PROC: F00ZJWZ Instrumental Swallowing and Oral Function Assessment using Swallowing Equipment (ICD-10-PCS; CPT 43235; principal; 2018-01-12 07:55)
DX: K21.9 Gastro-esophageal reflux disease without esophagitis (principal); R13.10 Dysphagia, unspecified
CPT/HCPCS: 91010; 91013

== ENCOUNTER 2018-01-18 05:44 | Day surgery (SDC) | payer MEDICAID, SELFPAY ==
[2018-01-04 13:48] VITALS: BMI 32.4
[2018-01-18 06:05] VITALS: BP 146/80; PULSE 66; RESP 16; TEMP 36.4; O2SAT 96; BMI 32.3
[2018-01-18 07:15] VITALS: BP 117/63; BP 146/80; PULSE 68; RESP 14; TEMP 36.6; O2SAT 94
[2018-01-18 07:20] VITALS: BP 122/74; BP 146/80; PULSE 63; RESP 14; O2SAT 92
--- NOTE | 2018-01-18 07:23 | OP.ENDO_ITS ---
Patient Name: Rowena Kumar Procedure Date: 01/18/2018 6:55 AM Date of : 1955 Age: 62 Procedure: Upper GI endoscopy Indications: Gastro-esophageal reflux disease, GERD, Refractory to medical management, paraesophageal hernia Providers: Paul Garcia MD Referring MD: Paul Garcia MD Medicines: See the Anesthesia note for documentation of the administered medications Patient Profile: This is a 62 year old female. Refer to note in patient chart for documentation of history and physical. Complications: No immediate complications. Procedure: Pre-Anesthesia Assessment: - Prior to the procedure, a History and Physical was performed, and patient medications and allergies were reviewed. The patient's tolerance of previous anesthesia was also reviewed. The risks and benefits of the procedure and the sedation options and risks were discussed with the patient. All questions were answered, and informed consent was obtained. Prior Anticoagulants: The patient has taken no previous anticoagulant or antiplatelet agents. ASA Grade Assessment: III - A patient with severe systemic disease. After reviewing the risks and benefits, the patient was deemed in satisfactory condition to undergo the procedure. After obtaining informed consent, the endoscope was passed under direct vision. Throughout the procedure, the patient's blood pressure, pulse, and oxygen saturations were monitored continuously. The gastroscope was introduced through the mouth, and advanced to the duodenal bulb. The upper GI endoscopy was accomplished without difficulty. The patient tolerated the procedure well. Scope In: 7:04:56 AM Scope Out: 7:09:23 AM Total Procedure Duration Time 0 hours 4 minutes 27 seconds Findings: The Z-line was regular and was found 35 cm from the incisors. The HORN capsule with delivery system was introduced through the mouth and advanced into the esophagus, such that the HORN pH capsule was positioned 29 cm from the incisors, which was 5 cm proximal to the GE junction. Suction was applied to the well of the HORN pH capsule to suck in the adjacent mucosa of the esophagus using the external vacuum pump. The HORN pH capsule was then deployed by depressing the plunger on top of the handle to advance the locking pin into the mucosa, thereby attaching the capsule to the esophagus. The plunger was then rotated a quarter turn clockwise to release the capsule from the delivery system. The delivery system was then withdrawn. Endoscopy was utilized for placement of the probe only. The scope was reinserted to evaluate placement of the HORN capsule. Visualization showed the HORN capsule to be in an appropriate position. The exam was otherwise without abnormality. Impression: - Z-line regular, 35 cm from the incisors. - The examination was otherwise normal. - The HORN pH capsule was positioned 29 cm from the incisors, which was 5 cm proximal to the GE junction. - No specimens collected. Recommendation: - Discharge patient to home. - Resume previous diet. - Hold present medications. - Repeat upper endoscopy at appointment to be scheduled to evaluate the response to therapy. - Return to my office in 1 week. Procedure Code(s): --- Professional --- 79924, 59, Esophagogastroduodenoscopy, flexible, transoral; diagnostic, including collection of specimen(s) by brushing or washing, when performed (separate procedure) 18216, Esophagus, gastroesophageal reflux test; with mucosal attached telemetry pH electrode placement, recording, analysis and interpretation CPT copyright 2017 [employer]. All rights reserved. The codes documented in this report are preliminary and upon senior instructor review may be revised to meet current compliance requirements. MD Paul Conn MD 01/18/2018 7:22:46 AM This report has been signed electronically. Number of Addenda: 0 Note Initiated On: 01/18/2018 6:55 AM
[2018-01-18 07:25] VITALS: BP 123/59; BP 146/80; PULSE 58; RESP 16; O2SAT 97
[2018-01-18 07:30] VITALS: BP 122/63; BP 146/80; PULSE 61; RESP 16; TEMP 36.3; O2SAT 97
[2018-01-18 07:45] VITALS: BP 146/80
== END 2018-01-18 08:00 | disposition home or self-care (01) ==
LOC: EN 05:45 → AC 05:45
PROVIDERS: Family Provider Family Medicine; PCP Family Medicine; Referring Provider Surgery; Visit Provider Surgery
DX: K21.9 Gastro-esophageal reflux disease without esophagitis (principal); K44.9 Diaphragmatic hernia without obstruction or gangrene; G47.30 Sleep apnea, unspecified; F32.9 Major depressive disorder, single episode, unspecified; Z79.899 Other long term (current) drug therapy; I10 Essential (primary) hypertension
CPT/HCPCS: 43235; 91035; J7120

== ENCOUNTER → 2018-01-31 08:00 | Outpatient (CLI) | payer MEDICAID, SELFPAY ==
[2018-01-18 06:05] VITALS: BMI 32.3
--- NOTE | 2018-01-31 08:05 | RAD_ITS ---
STUDY: AIR-CONTRAST UPPER GI SERIES. REASON FOR EXAM: Female, 62 years old. History of hiatal hernia. Epigastric pain. Hoarseness. FLUOROSCOPY TIME (if supplied): (0:30) minutes/seconds TECHNIQUE: The patient ingested barium. Multiple images of the esophagus stomach and duodenum were obtained. COMPARISON: Comparison is made with prior esophagram dated October 28, 2016. FINDINGS: There is a moderate-sized hiatal hernia without gastroesophageal reflux. No evidence of obstruction or mass lesion. The remainder of the stomach and duodenum is unremarkable. No evidence of ulceration. No mass lesion is seen. IMPRESSION: Moderate sized hiatal hernia without gastroesophageal reflux. Electronically Signed: Chandana Flores MD at 13:34 EST Tel [phone], Service support , STUDY: X-RAY - ESOPHAGUS (BARIUM SWALLOW) WITH FLUOROSCOPY REASON FOR EXAM: Female, 62 years old. History of hiatal hernia. TECHNIQUE: 25 view(s) of the esophagus were obtained following swallowing of barium. FLUOROSCOPY TIME (if supplied): (0:20) minutes/seconds COMPARISON: Comparison is made with prior examination is October 28, 2016. FINDINGS: There is no demonstrated esophageal foreign body. There is no demonstrated stricture or mucosal abnormality. Moderate sized hiatal hernia without gastroesophageal reflux. Normal visualized aortic arch and descending thoracic aorta. Normal visualized pulmonary parenchyma. There are diffuse degenerative changes of the visualized thoracic spine. RAD/Upper GI w/BA Swallow IMPRESSION: Moderate sized hiatal hernia. Electronically Signed: Chandana Flores MD at 13:35 EST Tel [phone], Service support ,
--- OUTSIDE RECORDS SUMMARY | 2018-05-04 12:51 | XMS RPT_ITS ---
:1955 Author Organization [place] Support Name Relationship Address Phone CORINA GARCIA Unavailable . + [place] [address] SOURS, LASHAUN Unavailable [address] + [place] [address] UE Unavailable Unavailable Unavailable CORINA GARCIA Unavailable Unavailable + [place] [address] SOURS, LASHAUN Unavailable [address] + [place] [address] UE Unavailable Unavailable Unavailable CORINA GARCIA Unavailable . + [place] [address] SOURS, LASHAUN Unavailable [address] + [place] [address] UE Unavailable Unavailable Unavailable CORINA GARCIA Unavailable Unavailable + [place] [address] SOURS, LASHAUN Unavailable [address] + [place] [address] UE Unavailable Unavailable Unavailable CORINA GARCIA Unavailable Unavailable + [place] [address] SOURS, LASHAUN Unavailable [address] + [place] [address] UE Unavailable Unavailable Unavailable CORINA GARCIA Unavailable Unavailable + [place] [address] R Unavailable Unavailable Unavailable SOURS, LASHAUN Unavailable [address] + [place] [address] CORINA GARCIA Unavailable Unavailable + [place] [address] SOURS, LASHAUN Unavailable [address] + [place] [address] UE Unavailable Unavailable Unavailable CORINA GARCIA Unavailable . + [place] [address] R Unavailable Unavailable Unavailable SOURS, LASHAUN Unavailable [address] + [place] [address] CORINA GARCIA Unavailable . + [place] [address] SOURS, LASHAUN Unavailable [address] + [place] [address] UE Unavailable Unavailable Unavailable RENETTA GARCIADSEY Unavailable Unavailable + R Unavailable Unavailable Unavailable SOURS, LASHAUN Unavailable [address] + [place] [address] R Unavailable Unavailable Unavailable SOURS, LASHAUN Unavailable [address] + [place] [address] SOURS, LASHAUN Unavailable Unavailable + SOURS, LASHAUN Unavailable Unavailable + SOURS, LASHAUN Unavailable Unavailable + Care Team Providers Name Role Phone Paul Garcia Attending Unavailable CAMEJO, NASIR O Referring Unavailable BrightonPaul Attending Unavailable Jose, Paul Referring Unavailable CAMEJO, NASIR O Primary Care Unavailable Paul Garcia Attending Unavailable CAMEJO, NASIR O Referring Unavailable Paul Garcia Attending Unavailable Paul Garcia Attending Unavailable Foreign Arita Referring Unavailable JosePaul Attending Unavailable CAMEJO, NASIR O Primary Care Unavailable Jose, Paul Referring Unavailable BrightonPaul Attending Unavailable CAMEJO, NASIR O Referring Unavailable Celestino Madison Attending Unavailable Celestino Madison Referring Unavailable CAMEJO, NASIR O Primary Care Unavailable BrightonPaul Attending Unavailable Brighton, Paul Referring Unavailable CAMEJO, NASIR O Primary Care Unavailable Paul Garcia Attending Unavailable Brighton, Paul Referring Unavailable CalCelestino carrasco Attending Unavailable Jose, Paul Referring Unavailable Camejo, Nasir Attending Unavailable Camejo, Nasir Primary Care Unavailable Camejo, Nasir Admitting Unavailable Camejo, Nasir Primary Care Unavailable Ivanauskas, Saulius Admitting Unavailable Ivanauskas, ulius Attending Unavailable Jerry Moreno Attending Unavailable Camejo, Nasir Primary Care Unavailable Jerry Moreno Admitting Unavailable Kamini, Jeffrey R Attending Unavailable Camejo, Nasir Primary Care Unavailable Josh Jerry Attending Unavailable Camejo, Nasir Primary Care Unavailable Josh, Jerry Admitting Unavailable Kamini, Jeffrey R Admitting Unavailable Kamini Jeffrey R Attending Unavailable Camejo, Nasir Primary Care Unavailable Kamini Jeffrey R Attending Unavailable Camejo, Nasir Primary Care Unavailable KaminiJeffrey R Admitting Unavailable Camejo, Nasir Attending Unavailable Camejo, Nasir Primary Care Unavailable Camejo, Nasir Admitting Unavailable Camejo, Nasir Attending Unavailable Camejo, Nasir Primary Care Unavailable Camejo, Nasir Attending Unavailable Camejo, Nasir Primary Care Unavailable Camejo, Nasir Attending Unavailable Camejo, Nasir Primary Care Unavailable PROBLEMS PROBLEMS DATE TYPE CONDITION / CODE ATTENDING STATUS SOURCE 02/24/2018 Unknown K21.9 - Paul Garcia [facility] Gastro-esophageal Community reflux disease Hospital without Repository esophagitis / K21.9(ICD-10) 02/02/2018 Unknown R13.10 - Paul Garcia [facility] Dysphagia, Community unspecified / Hospital R13.10(ICD-10) Repository PROCEDURES PROCEDURES No Procedure Records FoundRESULTS RESULTS SURGERY VISIT REPORT Observed: 02/01/2018 Status: F Source: [facility] 3:16 PM [facility] REPOSITORY [facility] [address] [place] [address] [address] [place] [address] OFFICE VISIT Date of Service: 02/01/18 MR#: [id number] Acct: [id number] Name: JIMROWENA Sanchez Nico Rep #: [id number] : 1955 Provider: Paul Garcia MD Age/Sex: 62/F Location: [facility] Status: Signed Intake Vital Signs02/01/18 Body Mass Index (BMI) 32.3 Intake Visit Reasons: FU Test Results - Upper GI w/BA Swallow Chief Complaint: hernia Help Desk Intern Required: No Is patient in pain?: No Allergies No Known Allergies Allergy (Verified 02/01/18 14:25) Medications modafinil 200 mg tablet 200 mg PO BID tab 12/20/17 [History Confirmed 02/01/18] triamterene 37.5 mg-hydrochlorothiazide 25 mg tablet 1 tab PO DAILY 12/20/17 [History Confirmed 02/01/18] venlafaxine 75 mg tablet 75 mg PO BID 12/20/17 [History Confirmed 02/01/18] PFSH Medical History Depression (Acute) Hiatal hernia (Acute) Sleep apnea (Acute) Hypertension (Chronic) Surgical History No history of previous surgery (Acute) Family History Mother Hypertension CVA (cerebral vascular accident) Social History Smoking Status: Never smoker alcohol intake: never substance use type: does not use HPI HPI HPI: ROWENA REDMOND, is a 62 F who presents to the office today for follow-up from a upper GI contrast series. This was completed on 01/31/2018 and there was comparisons made from the October 28, 2016 upper GI series. There is mention of a moderate sized hiatal hernia without gastroesophageal reflux there is no evidence of obstruction or mass lesions remainder of the stomach and duodenum is unremarkable with no evidence of ulcerations and there was no evidence of a mass lesion. When I compare both the 2017 to the 2018 I believe this hernia has significantly gotten larger. Assessment AND Plan Problems 1. Paraesophageal hernia K44.9 Plan I am going to review this up with GI with my partner to see if this is the case that he thinks that he can combine to do here in [facility]. When you look at the the upper GI I would say almost 50% of her stomach is located in the chest now and he is significantly larger than it once was last year. Coding Level of Care Code Off vis,est,level 1 Diagnoses Paraesophageal hernia K44.9 02/01/18 1516 <Electronically signed by Paul Garcia MD> Date Paul Garcia MD Cosigner Signature: Date (if applicable) CC: UPPER GI W/BA Observed: 01/31/2018 Status: F Source: TERRY SWALLOW 8:02 AM [facility] REPOSITORY [facility] [place] [address] Upper GI w/BA Swallow MR#: [id number] Acct: [id number] Name: ROWENA REDMOND Rep #: [id number] : 1955 F 62 From: Chandana Flores MD PCP: Nasir Camejo MD Status: REG CLI Study: Upper GI w/BA Swallow Date of Exam: 01/31/18 Exam# [id number] Ordering Dr: Paul Garcia MD STUDY: AIR-CONTRAST [...] Chandana Flores MD at 13:34 EST Tel [phone], Service support , STUDY: X-RAY - ESOPHAGUS [...] Chandana Flores MD at 13:35 EST Tel [phone], Service support , CC: Paul Garcia MD; Nasir Camejo MD Bench Worker Apprentice: Signed OPERATIVE REPORT - Observed: 01/18/2018 Status: F Source: [place] ENDOSCOPY 7:23 AM [facility] REPOSITORY [facility] Medical Records Department [address] [place] [address] Operative Report - Endoscopy MR#: [id number] Acct: [id number] Name: ROWENA REDMOND Rep #: [id number] : 1955 62 From: Paul Garcia MD PCP: Nasir Camejo MD Status: REG [facility] Patient Name: Rowena Redmond Procedure Date: 01/18/2018 6:55 AM Date of [...] 1 week. Procedure Code(s): --- Professional --- 05892, 59, Esophagogastroduodenoscopy, flexible, transoral; diagnostic, including collection of specimen(s) by brushing or washing, when performed (separate procedure) 59184, Esophagus, gastroesophageal reflux test; with mucosal attached telemetry pH electrode placement, recording, analysis and interpretation CPT copyright 2017 [employer]. All rights reserved. The codes documented in this report are preliminary and upon director internal communications review may be revised to meet current compliance requirements. MD Paul Conn MD 01/18/2018 7:22:46 AM This report has been signed electronically. Number of Addenda: 0 Note Initiated On: 01/18/2018 6:55 AM 01/18/1822 Date Paul Garcia MD Cosigner Signature: Date (if indicated) CC: Paul Garcia MD; Nasir Camejo MD Date Dictated: 01/18/1855 Date Transcribed: Bench Worker Apprentice: KAROL Signed SURGERY VISIT REPORT Observed: 01/16/2018 Status: F Source: [place] 8:56 AM [facility] REPOSITORY [facility] [address] [place] [address] [address] [place] [address] OFFICE VISIT Date of Service: 01/11/18 MR#: [id number] Acct: [id number] Name: ROWENA REDMOND Nico Rep #: [id number] : 1955 Provider: Paul Garcia MD Age/Sex: 62/F Location: [facility] Status: Signed Intake Vital Signs01/04/18 Body Mass Index (BMI) 32.4 Intake Visit Reasons: Upper Scope 01/04 Chief Complaint: EGD results Help Desk Intern Required: No Is patient in pain?: No [...] Paul Garcia MD> Date Paul Garcia MD Cosign Signature: Date (if applicable) CC: Nasir Camejo MD OPERATIVE REPORT - Observed: 01/04/2018 Status: F Source: [place] ENDOSCOPY 7:31 AM [facility] REPOSITORY [facility] Medical Records Department [address] [place] [address] Operative Report - Endoscopy MR#: [id number] Acct: [id number] Name: ROWENA REDMOND Rep #: [id number] : 1955 62 From: Paul Garcia MD PCP: Nasir Camejo MD Status: REG [facility] Patient Name: Rowena Redmond Procedure Date: 01/04/2018 [...] present medications. Procedure Code(s): --- Professional --- 60232, Esophagogastroduodenoscopy, flexible, transoral; with biopsy, single or multiple Diagnosis Code(s): --- Professional --- K44.9, Diaphragmatic hernia without obstruction or gangrene K29.70, Gastritis, unspecified, without bleeding R13.10, Dysphagia, unspecified K21.9, Gastro-esophageal reflux disease without esophagitis CPT copyright 2017 [employer]. All rights reserved. The codes documented in this report are preliminary and upon director internal communications review may be revised to meet current compliance requirements. MD Paul Conn MD 01/04/2018 7:31:15 AM This report has been signed electronically. Number of Addenda: 0 Note Initiated On: 01/04/2018 7:09 AM 01/04/18730 Date Paul Garcia MD Cosigner Signature: Date (if indicated) CC: Paul Garcia MD; Nasir Camejo MD Date Dictated: 01/04/18708 Date Transcribed: Bench Worker Apprentice: DP Signed IMMUNOHISTOCHEMISTRY Observed: 01/04/2018 Status: F Source: TERRY 7:15 AM [facility] REPOSITORY Patient: ROWENA REDMOND : 1955 (62/F) Acct Num: [id number] Phys: Jose HERMOSILLO,Paul Unit Num: [id number] Loc: EN Specimen: [id number] Received: 01/04/181423 Spec Type: IMMUNO TISSUES 1 TISSUES: Stomach, NOS SPECIMEN INFORMATION: Tissue Source: Antral biopsy Clinical Info: Dysphagia, GERD, paraesophageal hernia Specimen Number: [id number] CPT code: 12429 METHODOLOGY: Deparaffinized sections of prefer/formalin-fixed tissue or PAP/DQ stained slides are incubated with monoclonal/polyclonal antibodies/oligonucleotide probes. Localization is made via biotin free immunoperoxidase method. Appropriate controls are performed and reacted as expected. Results on target cell population are indicated in the following table: RESULTS: ANTIBODY / CLONE RESULT H Pylori (polyclonal) negative These tests were developed and their performance characteristics determined by [facility]. They may not have been cleared or approved by the U.S. Food and Drug Administration. The FDA has determined that such clearance or approval is not necessary. INTERPRETATION: Antral biopsy: Negative for Helicobacter pylori organisms. SJ:ej 01/06/18 PHYSICIAN AND INSTITUTION [address] [address] Signed Graeme Lombardo 01/06/18 <signature on file> Performed By: #### PIMM #### [facility] [address] [place] [address]. [place], [place], [address] GASTRIC BIOPSY Observed: 01/04/2018 Status: F Source: [place] 12:00 AM [facility] REPOSITORY Patient: ROWENA REDMOND : 1955 (62/F) Acct Num: [id number] Phys: Paul Garcia MD Unit Num: [id number] Loc: EN Specimen: [id number] Received: 01/04/18 - 1107 Spec Type: Gastric Bx TISSUES 1 TISSUES: Gastric mucous membrane COMMENT The results of immunohistochemistry for Helicobacter pylori will be reported separately ([id number]). GROSS DESCRIPTION Received in fixative is one container labeled with the patient's name and designated antral biopsy. The specimen consists of one irregular fragment of light pollock soft tissue that measures 0.7 x 0.2 x 0.1 cm. The specimen is totally submitted in one cassette. / Isaac 01/04/18 TC:2 CPT: 41708 HEADER OPERATION: EGD ([facility]) PRE-OP DIAGNOSIS: Dysphagia, GERD, paraesophageal hernia TISSUE SUBMITTED: Antral biopsy for H. pylori and pathology MICROSCOPIC DESCRIPTION Slides are reviewed. MICROSCOPIC DIAGNOSIS Antral biopsy: Chronic active gastritis. [place]:ej 01/06/18 Signed Graeme Jain 01/06/18 <signature on file> Performed By: #### PGASB #### [facility] [address] [place], [address] SURGERY VISIT REPORT Observed: 12/20/2017 Status: F Source: CANJIL[place] 10:29 AM [facility] REPOSITORY [facility] [address] [place] [address] OFFICE VISIT Date of Service: 12/20/17 MR#: [id number] Acct: [id number] Name: ROWENA REDMOND Rep #: [id number] : 1955 Provider: Paul Garcia MD Age/Sex: 62/F Location: [facility] Status: Signed Intake Vital Signs12/20/17 Height 5 ft 10 in 12/20/17 Weight: 226 lb Intake Visit Reasons: Hiatal Hernia Req DP Help Desk Intern Required: No Is patient in pain?: No [...] person, oriented to place, oriented to time [facility] Head: normocephalic, atraumatic Ears: external ears normal [...] MD Cosigner Signature: Date (if applicable) CC: Jerald Arita MD; Nasir Camejo MD IFOB OCCULT BLOOD Collected: 08/16/2017 Status: F Source: [facility] 1:13 PM [facility] REPOSITORY TYPE CODE TESTS RESULT OUT OF RANGE REFERENCE UNITS LAB [id number]( LOINC) Normal Occult Negative Blood iFOB LAB CD:[id number](LOINC) Normal Occult Positive Bld iFOB Int Ctl Performed By: #### [id number] #### MARY [facility] , KINZA MAMM SCREEN W/CAD Observed: 07/22/2017 Status: F Source: [facility] IF PERFORMED BILAT 10:45 AM [facility] REPOSITORY Exam Date/Time: 07/22/2017 11:00 EDT Reason for Exam: SCREENING;Screening Report STUDY: Digital mammography screening; 07/22/2017 11:00 am ACCESSION NUMBER(S): [id number] ORDERING CLINICIAN: Jeffrey Suárez INDICATION: Screening. COMPARISON: [...] W/HPV RFX Collected: 07/20/2017 Status: F Source: [facility] [id number] 2:02 PM [facility] REPOSITORY Order Comment: Thin Prep. Menopause, cervical stenosis TYPE CODE TESTS RESULT OUT OF RANGE REFERENCE UNITS LAB [id number]( INC) Normal See Ref Lab Diagnosis: Report Performed By: #### [id number] #### [place] [address] PATHOLOGY ([facility]) Observed: 07/20/2017 Status: F Source: [facility] 12:00 AM REPOSITORY FINAL GYNECOLOGIC CYTOLOGY REPORT [id number] SPECIMEN ADEQUACY Satisfactory for Evaluation. Endocervical cells/transformation zone component present. GENERAL CATEGORIZATION Negative for Intraepithelial Lesion or Malignancy CLINICAL HISTORY Comment: LMP: Cervical Stenosis Menopause SPECIMEN (A) SCREENING CERVICAL/ENDOCERVICAL THIN PREP VIAL Performed at [facility], [address] [place] [address] Screened by: Signed Out by: ELVA AVELAR Line Service Supervisor Reported: 07/22/2017 Performed By: #### MANAGER OF CONSTRUCTION #### [facility] [address] [place] [address] CT HEAD OR BRAIN W/O Observed: 04/25/2017 Status: F Source: [facility] CONTRAST 11:59 AM [facility] REPOSITORY Exam Date/Time: 04/25/2017 12:10 EDT Reason [...] Signed by: Ronaldo Beaver MD, V Technologist: MINO ALLERGIES ALLERGIES DATE TYPE / CODE NAME / CODE REACTION SEVERITY SOURCE 02/01/2018 Drug No Known Unknown [facility] Allergy/416 Allergies/J95025 Hospital 637757(SNOM 0388(RXNORM) Repository ED CT) Drug/787555 No Known Confucianist 003(SNOMED [facility] CT) System Repository ENCOUNTERS ENCOUNTERS ADMIT/DISCHARGE ACCOUNT NUMBER ADMITTING ENCOUNTER LOCATION SOURCE CLASS 02/01/2018/02/02/20 [id number] Ambulatory [facility]: [facility] BMS.[facility] Repository 01/31/2018 [id number] Ambulatory [facility] ding:RAD Repository 01/27/2018/01/28/20 [id number] Ambulatory [address] ding:[facility] Repository racRoom: Room 1 01/25/2018/01/26/20 [id number] Ambulatory BMSBuilding: [place] 18 BMS.[facility] Repository 01/18/2018/01/19/20 [id number] Ambulatory [address] ding:ENRoom: Repository AC11 01/18/2018/01/19/20 [id number] Ambulatory B[facility]Building: [facility] 18 BMS.CF.[facility] Repository 01/12/2018/01/13/20 [id number] Ambulatory [address] ding:EN Repository 01/12/2018/01/13/20 [id number] Ambulatory B[facility]: [facility] 18 BMS.CF.[facility] Repository 01/11/2018/01/12/20 [id number] Ambulatory BMSBuilding: [place] 18 BMS.[facility] Repository 01/04/2018/01/05/20 [id number] Ambulatory BMSBuilding: [facility] 18 BMS.CF.[facility] Repository 01/04/2018/01/05/20 [id number] Ambulatory [facility] [place] [facility] ding:ENRoom: Repository AC11 12/20/2017/12/21/19 [id number] Ambulatory BMSBuilding: [place] 18 BMS.[facility] Repository 11/04/2017/11/05/19 [id number] [facility] [address] [facility] racRoom: Room 2 08/16/2017/08/17/[id number] ding:[facility] Repository 08/16/2017 [id number] Ambulatory [address] [place] [address] Repository 07/22/2017 [id number] [facility] ding:AshFa Repository rac 07/22/2017/07/23/[id number] ding:[facility] Repository racRoom: Room 3 07/22/2017/07/23/[id number] ding:[facility] Repository 07/22/2017 [id number] Ambulatory [address] [facility] Repository 07/20/2017/07/21/[id number] ding:[facility] Repository 07/20/2017/07/21/[id number] Health System :[facility] Repository om: Room 5 07/20/2017 [id number] Ambulatory [facility] Repository 07/19/2017/07/20/19 [id number] Josh, Ambulatory [address] ding:[facility] Repository racRoom: Room 2 05/05/2017/05/06/19 [id number] Josh, Ambulatory [address] ding:[facility] Repository racRoom: Room 2 04/25/2017/04/26/19 [id number] Ivanauskas, [address] ding:[facility] EDRoom: WR Repository PAYERS PAYERS ENCOUNTER GUARANTOR PAYER SUBSCRIBER SOURCE 02/01/2018 ROWENA Walsh Primary ROWENA Stewart [id number] CR Insurance:CARESOURCEP SOURSDOB: [address] Number: [id number] [address]Fbw: [id number] Repository Date:2018-01-31 O () [address]ATTN: [place] [address]MF: 02/01/2018 Secondary NOT GIVENUNK [place] Insurance:SELF PAY [facility] Number: Effective Repository Date:2018-02-01 01/31/2018 ROWENA Walsh Primary ROWENA Stewart [id number] CR Insurance:CARESOURCEP SOURSDOB: [address] Number: [id number] [place] [address]Wsl: [id number] Repository Date:2018-01-25 O () [address]ATTN: [place] [address]SO: 01/31/2018 Secondary NOT GIVENUNK [place] Insurance:SELF PAY [facility] Number: Effective Repository Date:2018-01-25 01/25/2018 ROWENA Walsh Primary ROWENA Stewart [id number] CR Insurance:CARESOURCEP SOURSDOB: [address] Number: [id number] General Hospital [address]Cgu: [id number] Repository Date:2018-01-18P O (HP) [address]ATTN: [place] [address]GP: 01/25/2018 Secondary NOT GIVENUNK [place] Insurance:SELF PAY [facility] Number: Effective Repository Date:2018-01-25 01/18/2018 ROWENA Walsh Primary ROWENA Stewart [id number] [address] Insurance:CARESOURCEP SOURSDOB: [address] Number: [id number] General Hospital [address]Evj: [id number] Repository Date:2018-01-11P O (HP) [address]ATTN: [place] [address]SO: 01/18/2018 Secondary NOT GIVENUNK [place] Insurance:SELF PAY [facility] Number: Effective Repository Date:2018-01-11 01/18/2018 ROWENA Walsh Primary ROWENA Stewart [id number] [address] Insurance:CARESOURCEP SOURSDOB: [address] Number: [id number] General Hospital [address]Cbb: [id number] Repository Date:2018-01-11P O (HP) [address]ATTN: [place] [address]GN: 01/18/2018 Secondary NOT GIVENUNK [place] Insurance:SELF PAY [facility] Number: Effective Repository Date:2018-01-18 01/12/2018 ROWENA Walsh Primary ROWENA Stewart [id number] [address] Insurance:CARESOURCEP SOURSDOB: [address] Number: [id number] [address]Cpd: [id number] Repository Date:2018-01-11P O (HP) [address]ATTN: [place] [address]VN: 01/12/2018 Secondary NOT GIVENUNK [place] Insurance:SELF PAY [facility] Number: Effective Repository Date:2018-01-11 01/12/2018 ROWENA Walsh Primary ROWENA Stewart [id number] [address] Insurance:CARESOURCEP SOURSDOB: [address] Number: [id number] General Hospital [address]Pdv: [id number] Repository Date:2018-01-11P O () [address]ATTN: [place] [address]VO: 01/12/2018 Secondary NOT GIVENUNK [place] Insurance:SELF PAY [facility] Number: Effective Repository Date:2018-01-12 01/11/2018 ROWENA Walsh Primary ROWENA Stewart [id number] [address] Insurance:CARESOURCEP SOURSDOB: [address] Number: [id number] General Hospital [address]Sec: [id number] Repository Date:2018-01-04P O () [address]ATTN: [place] [address]HE: 01/11/2018 Secondary NOT GIVENUNK [place] Insurance:SELF PAY [facility] Number: Effective Repository Date:2018-01-04 01/04/2018 ROWENA Walsh Primary ROWENA Agarwaloster [id number] [address] Insurance:CARESOURCEP SOURSDOB: [address] Number: [id number] General Hospital [address]Yzd: [id number] Repository Date:2017-12-20P O () [address]ATTN: [place] [address]MN: 01/04/2018 Secondary NOT GIVENUNK [place] Insurance:SELF PAY [facility] Number: Effective Repository Date:2018-01-04 01/04/2018 ROWENA Walsh Primary ROWENA Stewart [id number] [address] Insurance:CARESOURCEP SOURSDOB: [address] Number: [id number] General Hospital [address]Bue: [id number] Repository Date:2017-12-20P O (HP) [address]ATTN: [place] [address]TY: 01/04/2018 Secondary NOT GIVENUNK [place] Insurance:SELF PAY [facility]: Effective Repository Date:2017-12-20 12/20/2017 ROWENA [id number] Primary ROWENA SOURSDOB: [place] [facility] [id number] [address] Number: [facility] [address]Fre: [id number] Repository Date:2017-12-16P O () [address]ATTN: [place] [address]NK: 12/20/2017 Secondary NOT GIVENUNK [place] Insurance:SELF PAY [facility] Number: Effective Repository Date:2017-12-16 08/16/2017 ROWENA SOURSDOB: Primary ROWENA SOURSDOB: [place] Insurance:[facility] [id number] [place] [address] Number: [facility] Repository [address] [place] [address], [id number] [address] [place] [address] [id number]: Date:[facility] [id number]: Name:[facility] O Box ([place]) [address] [place] [address] () [id number]: 07/22/2017 ROWENA A Primary ROWENA [facility]itan SOURSDOB: Insurance:1500 SOURSDOB: [facility] [id number] [facility] Repository [address] [place] [address], Number: Effective [address] [place] [address] [phone]: Date:2017-07-22 - [place] [id number]: [id number] (ZO)Tel: ([phone]) Name:CD:[id number] O (HP) (WP) [address] [place] [address] 000-0000 (WP) [address]XG: 07/22/2017 ROWENA Walsh Primary ROWENA FERNANDEZSDOB: Insurance:[facility] SOURSDOB: [facility] [id number] [facility] Repository [address] [place] [address], Number: Effective [address] [place] [address] [phone]: Date:2017-01-21 - [place] [id number]: [id number] (HP)Tel: ([phone]) Name:[id number] O (HP) (WP) [address] [place] [address] 000-0000 (WP) [address]RX: 07/22/2017 ROWENA A Primary ROWENA Enriquez SOURSDOB: [facility]: [facility] Number: [id number] [facility] Repository [address] [place] [address], Date:2017-07-20 - [address] [place] [address] [id number]: 1088-05-95Empn [place] [id number]: Name:CD:[id number] (HP)Tel: (419) [address] [place] [address] (HP) (WP) [phone]: (WP) [phone] 07/22/2017 ROWENA SOURSDOB: Primary ROWENA SOURSDOB: [place] Insurance:[employer] [id number] [facility] Number: [address], [id number] [address] [place] [address] [id number]: Date:[facility] [id number]: Name:HealthP O Box (HP) [address] [place] [address] (HP) [id number]: 07/20/2017 ROWENA Walsh Primary ROWENA Enriquez SOURSDOB: Insurance:[employer] SOURSDOB: [facility] Number: [id number] [address], Date:2017-07-20 - [address] [place] [address] [id number]: [id number] [place] [id number]: Name:CD:[id number] (HP)Tel: (419) [address] [place] [address] (HP) (WP) [phone]: (WP) [phone] 07/20/2017 ROWENA Walsh Primary ROWENA Enriquez SOURSDOB: Insurance:[facility] SOURSDOB: [facility] [id number] [facility] [address], Number: Effective [address] [place] [address] [phone]: Date:2017-06-17 - [place] [id number]: [id number] (HP)Tel: ([phone]) Name:CD:[id number] O (HP) (WP) [address] [place] [address] 000-0000 (WP) [phone]: 07/20/2017 ROWENA SOURSDOB: Primary ROWENA SOURSDOB: [place] Insurance:[employer] [id number] [facility] Number: [address], [id number] [address] [place] [address] [phone]: Date:[facility] [id number]: Name:HealthP O Box (HP) [address] [place] [address] () [id number]: 07/19/2017 ROWENA Walsh Primary ROWENA Enriquez SOURSDOB: Insurance:1500 SOURSDOB: [facility] [id number] [address], Number: Effective [address] [place] [address] [phone]: Date:2017-07-19 - [place] [id number]: [id number] (HP)Tel: ([phone]) Name:CD:[id number] O (HP) (WP) [address] [place] [address] 000-0000 (WP) [phone]: 05/05/2017 ROWENA Walsh Primary ROWENA Enriquez SOURSDOB: Insurance:1500 SOURSDOB: [facility] [id number] [place] [address], Number: Effective [place], [place] [phone]: Date:2017-05-05 - [place] [id number]: [id number] (HP)Tel: ([phone]) Name:CD:[id number] O (HP) (WP) [address] [place] [address] 000-0000 (WP) [phone]: 04/25/2017 ROWENA Walsh Primary ROWENA FERNANDEZSDOB: Insurance:[employer] SOURSDOB: [facility] MCAIDPolicy Number: [id number] [address], Date:2017-04-25 - [address] [place] [address] [id number]: [id number] [place] [phone]: Name::[id number] ()Tel: (295) ERD [address], [place] () (WP) [id number]: () [phone]
== END ==
PROVIDERS: Family Provider Family Medicine; PCP Family Medicine; Referring Provider Surgery; Visit Provider Surgery
DX: R10.13 Epigastric pain (principal)
CPT/HCPCS: 74246